=== PATIENT | female | born 2000 | race Caucasian/White ===

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

== ENCOUNTER 2019-05-11 11:27 | Emergency (ER) | payer MEDICAID ==
[~2019-05-11] VITALS: Ht 165.1 cm; Wt 85.3 kg
[2019-05-11 11:36] VITALS: Ht 165.1 cm; Wt 85.3 kg
[2019-05-11 12:12] LABS: BASOPHIL % 0.4 % (0-2); PLATELET COUNT 245 x10^3mcL (130-400); RED CELL DISTRIBUTION WIDTH 13.4 % (11.5-14.5)
[2019-05-11 16:03] VITALS: BP 142/95
== END 2019-05-11 16:03 | disposition home or self-care (01) ==
LOC: ED 11:27
DX: N39.0 Urinary tract infection, site not specified (principal); D25.9 Leiomyoma of uterus, unspecified; Z88.1 Allergy status to other antibiotic agents
CPT/HCPCS: 36415; 87491; 87591; J0696